=== PATIENT | male | born 1980 | race Caucasian/White ===

== ENCOUNTER 2017-10-29 09:56 | Day surgery (SDC) | payer OTHER ==
--- NOTE | 2017-10-29 09:07 | PDHPUP ---
History & Physical Update H&P update statement: This history and physical update is based on an assessment of the patient which was completed after admission or registration (within 24 hours), but prior to the surgery/procedure. H&P update: H&P reviewed & patient examined
[2017-10-29] MEDS ORDERED: LR 1,000 ML IV ONE (10:15)
[2017-10-29] MEDS ORDERED: LIDOCAINE 1% 2 ML INJ ID PRN (10:15)
[2017-10-29 10:25] VITALS: PULSE 60
[2017-10-29] MEDS ORDERED: LIDO/EPI 1% **for epidural** 30 ML SDV ONE (10:33)
[2017-10-29] MEDS ORDERED: LIDO/EPI 1% **for epidural** 10 ML SDV ONE ×2 (10:33→11:30)
[2017-10-29] MEDS ORDERED: OXYMETAZOLINE 30 ML NASAL SPRAY ONE (10:34)
[2017-10-29] MEDS ORDERED: BACITRACIN ZINC 14.2 GM OINTTUBE TP ONE ×2 (10:34→11:48)
[2017-10-29] MEDS ORDERED: PROPOFOL/EMULSION 500 MG/50 ML BOTTLE IV ONE (10:36)
[2017-10-29] MEDS ORDERED: fentaNYL 100 MCG/2 ML INJ ONE ×2 (10:36→12:33)
[2017-10-29] MEDS ORDERED: PROPOFOL 200 MG/20 ML VIAL ONE ×2 (10:36→11:35)
[2017-10-29] MEDS ORDERED: ROCURONIUM 50 MG/5 ML VIAL ONE (10:39)
[2017-10-29] MEDS ORDERED: LIDOCAINE 2% 5 ML SDV ONE (10:39)
[2017-10-29] MEDS ORDERED: MIDAZOLAM 2 MG/2 ML VIAL IVP ONE (10:42)
[2017-10-29] MEDS ORDERED: LABETALOL HCL 5 MG/ML 20 ML MDV IVP PRN (10:44)
[2017-10-29] MEDS ORDERED: ACETAMINOPHEN 500 MG TAB PO PRN (10:44)
[2017-10-29] MEDS ORDERED: NALOXONE HCL 0.4 MG/ML INJ IVP PRN (10:44)
[2017-10-29] MEDS ORDERED: ONDANSETRON 4 MG/2 ML VIAL IVP PRN (10:44)
[2017-10-29] MEDS ORDERED: PROMETHAZINE HCL 25 MG/ML INJ IVP PRN (10:44)
[2017-10-29] MEDS ORDERED: LR 500 ML IV PRN (10:44)
[2017-10-29] MEDS ORDERED: MEPERIDINE 25 MG/ML SYR IVP PRN (10:44)
[2017-10-29] MEDS ORDERED: OXYCODONE/APAP 5/325 TAB PO PRN (10:44)
--- NOTE | 2017-10-29 10:44 | PDANEPAE ---
ANE Past Medical History - Cardiovascular History Hx Hypertension: Yes Hx Arrhythmias: No Hx Chest Pain: No Hx Coronary Artery / Peripheral Vascular Disease: No Hx CHF / Valvular Disease: No Hx Palpitations: No Cardiovascular History Comment: intermittent elevated BP - Pulmonary History Hx COPD: No Hx Asthma/Reactive Airway Disease: No Hx Recent Upper Respiratory Infection: No Hx Oxygen in Use at Home: No Hx Sleep Apnea: No Sleep Apnea Screening Result - Last Documented: Negative - Neurologic History Hx Cerebrovascular Accident: No Hx Seizures: No Hx Dementia: No - Endocrine History Hx Diabetes: No - Renal History Hx Renal Disorders: No - Liver History Hx Hepatic Disorders: No - Neurological & Psychiatric Hx Hx Neurological and Psychiatric Disorders: No - Cancer History Hx Cancer: No - Congenital Disorder History Hx Congenital Disorders: No - GI History Hx Gastrointestinal Disorders: No - Other Health History Other Health History: nasal surgery - Chronic Pain History Chronic Pain: No - Surgical History Prior Surgeries: none ANE Review of Systems Review of Systems: - Exercise capacity METS (RN): 5 METS ANE Patient History - Allergies Allergies/Adverse Reactions: No Known Allergies Allergy (Verified 10/13/17 16:22) - Home Medications Home Medications: Losartan Potassium 10/13/17 [Last Taken 10/26/17] - NPO status NPO Since - Liquids (Date): 10/28/17 NPO Since - Liquids (Time): 22:00 NPO Since - Solids (Date): 10/28/17 NPO Since - Solids (Time): 23:59 - Anes Hx Anes Hx: post operative nausea and vomiting - Smoking Hx Smoking Status: Never smoked - Family Anes Hx Family Hx Anesthesia Complications: none ANE Labs/Vital Signs - Vital Signs Blood Pressure: 119/95 Heart Rate: 60 Respiratory Rate: 16 O2 Sat (%): 96 Height: 175.26 cm Weight: 83.915 kg ANE Physical Exam - Airway Neck exam: FROM Mallampati Score: Class 1 Mouth exam: normal dental/mouth exam - Pulmonary Pulmonary: no respiratory distress, no rales or rhonchi, clear to auscultation - Cardiovascular Cardiovascular: regular rate and rhythym, no murmur, rub, or gallop - ASA Status ASA Status: I ANE Anesthesia Plan Anesthesia Plan: general endotracheal anesthesia
[2017-10-29] MEDS ORDERED: DEXAMETHASONE 4 MG/ML VIAL ONE ×2 (11:07)
[2017-10-29] MEDS ORDERED: ONDANSETRON 4 MG/2 ML VIAL ONE ×2 (11:07→13:15)
[2017-10-29] MEDS ORDERED: SUGAMMADEX SODIUM 200 MG/2 ML VIAL IVP ONE (11:52)
--- NOTE | 2017-10-29 11:54 | POSTOPPROG ---
Post Op Note Date of Operation: 10/29/17 Surgeon: Liliane Kapadia Anesthesiologist: Geovanna Anesthesia: GET(General Endotracheal) Pre-op Diagnosis: nasal obstruction Post-op Diagnosis: same Procedure: NSR SMRIT Inf/Abcess present in the surg proc area at time of surgery?: No EBL: Minimal Total fluids administered: 350 Complications: none
--- NOTE | 2017-10-29 12:28 | GOP ---
[f rep st] OPERATIVE REPORT DATE OF OPERATION: 10/29/2017 SURGEON: Richard Kapadia MD ANESTHESIA: General endotracheal. PREOPERATIVE DIAGNOSIS: Nasal airway obstruction secondary to septal deformity, inferior turbinate h ypertrophy. POSTOPERATIVE DIAGNOSIS: Nasal airway obstruction secondary to septal deformity, inferior turbinate hypertrophy. PROCEDURE PERFORMED: Nasal septal reconstruction with submucosal resection of the inferior turbinate s and outfracture of inferior turbinates. FINDINGS: 1. Nasal septal deformity toward the right treated by nasal septal reconstruction. 2. Inferior turbinate hypertrophy treated by submucosal resection of the inferior turbinates with in ferior turbinate outfracture. ESTIMATED BLOOD LOSS: 30 mL. DESCRIPTION OF PROCEDURE: Patient was placed on the operating table in supine position. After induc tion of adequate general endotracheal anesthesia, sterile drape was performed. Pledgets soaked in 0. 5% Pelon-Synephrine were inserted into the right and left side of the nose. In addition, the soft tiss ues overlying the nasal septum and inferior turbinates was infiltrated utilizing 1% lidocaine with 1: 100,000 parts of epinephrine. The nose was examined, septal deformity toward the right was noted to b e present. A left hemitransfixion incision was created and carried down to the layer deep to the muc operichondrium. A flap was then elevated in a submucoperichondrial plane on the left side of the nose . Just anterior to the most significant septal deformity, the septal cartilage was incised and a flap was elevated in a submucoperichondrial plane on the right side of the nose. This allowed exposure o f deformed septal bone and cartilage which were then removed resulting in marked straightening of the nasal septum. After the septal bone and cartilage had been removed, straight portions of septal bon e as well as morselized portions of septal cartilage, were reinserted between the septal leaves. The hemitransfixion incision was then closed with three 0 chromic sutures placed in a transfixion fashion . The septal leaves were reapproximated utilizing 4-0 plain gut sutures placed in a [id number] ugh quilting fashion. Once this was completed, attention was directed to the inferior turbinates. Th e inferior turbinates were hydro-infiltrated bilaterally using 1% lidocaine with 1:100,000 parts epin ephrine. Initially, the right inferior turbinate was addressed. A Xomed polyp shaver utilizing a 2 mm blade was used to perform submucosal resection of the inferior turbinate. A stab incision was cre ated along the anterior aspect of the inferior turbinates and then the soft tissues of the turbinate were elevated off the underlying turbinate bone. Numerous passes were then made in the submucoperich ondrial plane utilizing the 2 mm polyp shaver to markedly reduce the mass of the inferior turbinate. Once this had been completed, the residual turbinate tissue was then outfractured. An identical proc edure was then performed on the left. Submucosal resection of the inferior turbinate was performed f ollowed by turbinate outfractured. At this point, rolled Telfa was inserted into the right and left side of the nose for packing. The patient was then awakened, transferred to postanesthesia recovery area in stable condition. FLUID REPLACEMENT: 400 mL. COMPLICATIONS: None. /[id number]/MODL
[2017-10-29] MEDS: fentaNYL 100 MCG/2 ML INJ IVP PRN ×2 (12:35→12:45)
[2017-10-29 12:40] VITALS: TEMP 97.5
[2017-10-29 12:41] VITALS: RESP 16
[2017-10-29] MEDS ORDERED: OXYCODONE/APAP 5/325 TAB ONE (13:14)
--- NOTE | 2017-10-29 13:46 | POSTANESTH ---
Post Anesthetic Evaluation Cardiovascular Status: Normal, Stable, Similar to Pre-Op Cond Respiratory Status: Normal, Stable, Similar to Pre-op Cond. Level of Consciousness/Mental Status: Can Participate in Eval, Mildly Sleepy, Arousable Pain Control: Adequate, Prn Tx Ordered Nausea/Vomiting Control: Adequate, Prn Tx Ordered Complications Possibly Related to Anesthesia: None Noted
[2017-10-29 13:54] VITALS: BP 158/91
[2017-10-29 13:57] VITALS: O2SAT 94
== END 2017-10-29 13:44 | disposition home or self-care (01) ==
LOC: FSGY 09:56
PROVIDERS: ATTEND Otolaryngology
PROC: 09TL7ZZ Resection of Nasal Turbinate, Via Natural or Artificial Opening (ICD-10-PCS; principal; 2017-10-29 10:45)
PROC: 09QM3ZZ Repair Nasal Septum, Percutaneous Approach (ICD-10-PCS; principal; 2017-10-29 10:45)
DX: J34.2 Deviated nasal septum (principal); J34.3 Hypertrophy of nasal turbinates
CPT/HCPCS: J1100; J2250; J2405; J2704; J3010